=== PATIENT | female | born 1960 | race Caucasian/White ===

== ENCOUNTER 2017-09-30 09:09 | Emergency (ER) | payer BC ==
[2017-09-30] MEDS ORDERED: Triamcinolone Acetonide 0.1% Crm 80 GM Tube TOP PRN (09:58)
[2017-09-30] MEDS ORDERED: Triamcinolone Acetonide 40 MG/ML 1 ML MDV IM ONE ×2 (09:58→10:08)
[2017-09-30] MEDS ORDERED: hydrOXYzine HCl 10 MG Tab PO PRN (09:59)
--- NOTE | 2017-10-04 09:32 | ER ---
DATE SEEN: 09/30/2017 TIME SEEN: The patient was seen at 0930 hours. HISTORY OF PRESENT ILLNESS: This pleasant 57-year-old woman who has now taken on 3 girls who are from one of her children's marriage, is more active than usual. Works at [email or web address] at one of the businesses [facility]. Has noted for the past month intermittent rashes. It has become more frequent recently. Noted on the right elbow today. It is associated with itching. No history of pets exposure. No history of walking outside in the [place] (poison shun, poison oak, hemp, or other weed exposure). She has had her influenza vaccines and mild cough this last month. Not extensive. No new medications. No new cosmetics, perfumes, soaps, lotions, clothes, carpet, car upholstery, jackets, but she states she has had more stress than usual with taking the children to gymnastics after work. They are 10, 7, and 5-year-old girls. She feels like the world is somewhat of a whirlwind. No exposure to dogs and other households. Pretty much is at home. Has not been visiting. She does eats out 3 times a week and cannot think of any unusual food she is eating. She has nuts frequently, that she eats to snack on, nothing new that has changed. Food is not changed. She has no allergies to nuts, peanuts, kiwi, citrus, soy, milk, wheat, no unusual foods. MEDICATIONS: None. ALLERGIES: She is allergic to sulfa. PHYSICAL EXAMINATION: GENERAL: Alert woman. She has itching frequently at the elbow. VITAL SIGNS: Blood pressure 159/100, that was repeated 149/75; heart rate 88; respirations 18; oxygen saturation 100%. HEENT: PERRLA intact. No ocular injection. No edema. No chemosis of the scleral conjunctival junction. EOMs normal. Pharynx without abnormality. No edema of the posterior pharynx or oropharynx. No intraoral lesions. NECK: No thyromegaly or masses. No cervical adenopathy. No bruits. LUNGS: Clear without rales, rhonchi, or wheezes. HEART: S1, S2. No murmur. No irregular rate and rhythm. ABDOMEN: Soft. No guarding. No masses. Bowel sounds normal. EXTREMITIES: Joints without abnormality. NEURO: Not performed. DERMIS: Irregular circular welts noted with mild erythema of the right elbow. That seems to be diminished as the time goes on for her duration in the ER, but still present. She has multiple scattered areas on her lower extremities. Not as extensive as her elbow. She itches her elbow frequently. No serpiginous rash on the lower extremities. The lower extremity rash is not as discrete as the right elbow. Mild erythema with scattered patches without wheals on her abdomen and the axillary region bilaterally from the infracostal region-minimal rash. No pelvic involvement and no axillary involvement. Just a trace of suboccipital scalp erythema with very slightly raised areas. ASSESSMENT: 1. Multiple etiology for erythema multiforme, from virus, bacterial, fungal, nerves, red and yellow dyes, mycoplasma, and/or other bacteria. 2. The etiology for this rash is indeterminate. PLAN: 1. Treat the symptoms. I do not plan to use antibiotics. I do not believe she has mycoplasma involvement. Use triamcinolone 0.1% cream, apply b.i.d., to avoid face. 2. Kenalog 40 mg IM. 3. Drug of choice for itching, Atarax (hydroxyzine), I have chosen purposely 10 mg 1 to 2 teaspoons every 4 to 6 hours p.r.n. itch. The patient has been advised that she can double the dose in the evening when she is going to sleep, otherwise only use 1 teaspoon during the daytime. I purposely used pediatric dose to diminish the sedation factor. If she finds she can use 2 teaspoons while at work, that will be at her discretion. I also advised it can sedate her and could affect her driving if she uses the medicine. 4. Follow up with doctor in a week if not improved. DIAGNOSIS: Contact dermatitis with allergic reaction, pruritus - agents indeterminate. Perhaps a food agent, or something she has eaten, or the stress of managing her 3 granddaughters, ages 10, 7, and 5, as this is a new, more demanding schedule in her life. /[id number] BING/LELEL
== END 2017-09-30 10:35 | disposition home or self-care (01) ==
LOC: FB.ED 09:09
DX: L51.9 Erythema multiforme, unspecified (principal); L23.9 Allergic contact dermatitis, unspecified cause; Z88.2 Allergy status to sulfonamides
CPT/HCPCS: 96372; 99283; A9270; J3301